=== PATIENT | male | born 1980 | race African-American/Black ===

== ENCOUNTER 2022-08-11 13:15 | Emergency (ER) | payer OTHER ==
[~2022-08-11] VITALS: Ht 182.9 cm; Wt 114.1 kg
[2022-08-11 13:35] VITALS: TEMP 97.8
[2022-08-11 16:19] VITALS: BP 137/95; PULSE 60
== END 2022-08-11 16:20 | disposition home or self-care (01) ==
LOC: COL.ER 13:15
DX: S02.2XXA Fracture of nasal bones, initial encounter for closed fracture (principal); S43.402A Unspecified sprain of left shoulder joint, initial encounter; S20.211A Contusion of right front wall of thorax, initial encounter; Z28.310 Unvaccinated for COVID-19; V49.9XXA Car occupant (driver) (passenger) injured in unspecified traffic accident, initial encounter; Y92.410 Unspecified street and highway as the place of occurrence of the external cause